=== PATIENT | female | born 1935 | race African-American/Black ===

== ENCOUNTER 2018-10-26 14:30 | Inpatient (IN) | payer MEDICARE ==
[~2018-10-26] VITALS: Ht 149.9 cm; Wt 54.9 kg
[2018-10-26 16:56] LABS: BASOPHILS % 1.1 % (0.0-2.0); HEMATOCRIT. 25.4 % (36.0-48.0); HEMOGLOBIN. 8.1 g/dL (12.0-16.0); LYMPHOCYTES % 30.1 % (20.0-50.0); MEAN CORPUSCULAR HEMOGLOBIN 20.9 pg (28.0-32.0); MEAN CORPUSCULAR VOLUME 65.8 fL (81.0-99.0); MEAN PLATELET VOLUME 6.5 fl (7.4-10.4); MONOCYTES % 6.9 % (2.0-8.0); NEUTROPHILS % 57.9 % (40.0-76.0); PLATELET 471 x1000/uL (130-400); RED BLOOD CELL COUNT 3.87 mill/uL (4.2-5.4)
[2018-10-26 16:59] LABS: CHLORIDE 104 mEq/L (98-107)
[2018-10-26] MEDS ORDERED: ACETAMINOPHEN 325MG TABLET PO ONE (17:00)
[2018-10-26 17:04] LABS: INR 1.2; PARTIAL THROMBOPLASTIN TIME 32.4 sec (23.4-31.0); PROTHROMBIN TIME 11.9 sec (9.1-11.1)
[2018-10-26] MEDS ORDERED: FUROSEMIDE 20MG/2ML VIAL IVP ONE (17:15)
[2018-10-26 17:19] LABS: PLATELET ESTIMATE SLIGHTLY INCREASED
[2018-10-26] MEDS ORDERED: SODIUM CHLORIDE 0.9% 500 ML IV ONE (17:58)
[2018-10-26] MEDS ORDERED: POTASSIUM CHLORIDE 20MEQ TABLET SR PO ONE (18:00)
[2018-10-26] MEDS ORDERED: TRAMADOL 50MG TABLET PO ONE (18:30)
[2018-10-26] MEDS ORDERED: IPRATROPIUM/ALBUTEROL 0.5-3(2.5)MG/3ML NEB INH PRN (19:30)
[2018-10-26] MEDS ORDERED: MAGNESIUM/ALUMINUM HYDROXIDE/SIMETHICONE 30ML UDC PO PRN (19:30)
[2018-10-26] MEDS ORDERED: NA PHOS,M-B/NA PHOS,DI-BA ENEMA 118ML PR PRN (19:30)
[2018-10-26] MEDS ORDERED: DIPHENHYDRAMINE 50MG/ML VIAL IV PRN (19:30)
[2018-10-26] MEDS ORDERED: GUAIFENESIN 200MG/10ML SUGAR FREE UDC PO PRN (19:30)
[2018-10-26] MEDS ORDERED: ONDANSETRON HCL 4MG/2ML INJ IV PRN (19:30)
[2018-10-26] MEDS ORDERED: LORAZEPAM 2MG/ML CPJ IV PRN (19:30)
[2018-10-26] MEDS ORDERED: HYDRALAZINE 20MG/ML VIAL IV PRN (19:30)
[2018-10-26] MEDS ORDERED: DOCUSATE SODIUM 100MG CAPSULE PO PRN (19:30)
[2018-10-26 21:25] VITALS: BP 129/59
[2018-10-26 22:04] VITALS: BP 129/59
[2018-10-27] VITALS: BP_SYST 135; BP_SYST 165; BP_DIAS 58; BP_DIAS 74
[2018-10-27 00:16] LABS: CREATINE KINASE 255 IU/L (26-192)
[2018-10-27 00:17] LABS: CREATINE KINASE MB FRACTION 3.8 ng/mL (0.5-3.6)
[2018-10-27] MEDS: SODIUM CHLORIDE 0.9% INJ 3ML FLUSH IVF SCH ×2 (00:25→21:01)
[2018-10-27] MEDS: TRAMADOL 50MG TABLET PO PRN ×3 (00:25→18:33)
[2018-10-27 04:00] VITALS: BP 127/66
[2018-10-27 08:00] VITALS: BP 154/51
[2018-10-27] MEDS: ENOXAPARIN 40MG/0.4ML SYR SUBCUT SCH (08:07)
[2018-10-27 08:20] LABS: BASOPHILS % 1.2 % (0.0-2.0); EOSINOPHILS % 3.7 % (0.0-5.0); HEMATOCRIT. 24.6 % (36.0-48.0); HEMOGLOBIN. 7.8 g/dL (12.0-16.0); LYMPHOCYTES % 29.2 % (20.0-50.0); MEAN CORPUSCULAR HEMOGLOBIN 20.9 pg (28.0-32.0); MEAN CORPUSCULAR VOLUME 65.9 fL (81.0-99.0); MEAN PLATELET VOLUME 6.8 fl (7.4-10.4); MONOCYTES % 7.1 % (2.0-8.0); NEUTROPHILS % 58.8 % (40.0-76.0); PLATELET 419 x1000/uL (130-400); RED BLOOD CELL COUNT 3.74 mill/uL (4.2-5.4); RED CELL DISTRIBUTION WIDTH 19.4 % (11.6-14.6)
[2018-10-27 08:31] LABS: CHLORIDE 103 mEq/L (98-107)
[2018-10-27 08:44] LABS: CREATINE KINASE MB FRACTION 2.6 ng/mL (0.5-3.6); LDL CHOLESTEROL 112 mg/dL (5-100); T4 FREE 1.54 ng/dL (0.76-1.46)
[2018-10-27 08:46] LABS: CREATINE KINASE 184 IU/L (26-192); HDL CHOLESTEROL 75 mg/dL (40-59)
[2018-10-27] MEDS ORDERED: FUROSEMIDE 40MG/4ML VIAL IV SCH (09:00)
[2018-10-27] MEDS: ACETAMINOPHEN 325MG TABLET PO PRN ×2 (10:29→16:35)
[2018-10-27 12:00] VITALS: BP 143/63
[2018-10-27] MEDS ORDERED: POTASSIUM CHLORIDE 10MEQ TABLET SR PO SCH (12:15)
[2018-10-27] MEDS: FUROSEMIDE 20MG/2ML VIAL IVP SCH (13:46)
[2018-10-27 15:38] LABS: CREATINE KINASE 153 IU/L (26-192)
[2018-10-27 15:39] LABS: CREATINE KINASE MB FRACTION 2.1 ng/mL (0.5-3.6)
[2018-10-27 15:42] LABS: T4 FREE 1.53 ng/dL (0.76-1.46)
[2018-10-27 16:26] VITALS: BP 151/72
[2018-10-27 20:00] VITALS: BP 122/64
[2018-10-27] MEDS: CLONIDINE 0.1MG TABLET PO PRN (21:01)
[2018-10-28] VITALS: BP 143/63
[2018-10-28 00:48] LABS: CREATINE KINASE 127 IU/L (26-192)
[2018-10-28 00:49] LABS: CREATINE KINASE MB FRACTION 1.7 ng/mL (0.5-3.6)
[2018-10-28] MEDS: TRAMADOL 50MG TABLET PO PRN ×2 (03:54→12:17)
[2018-10-28 04:00] VITALS: BP 176/72
[2018-10-28] MEDS: CLONIDINE 0.1MG TABLET PO PRN (05:22)
[2018-10-28] MEDS: SODIUM CHLORIDE 0.9% INJ 3ML FLUSH IVF SCH ×3 (05:23→22:00)
[2018-10-28 07:41] LABS: CREATINE KINASE 121 IU/L (26-192)
[2018-10-28 07:42] LABS: CREATINE KINASE MB FRACTION 2.1 ng/mL (0.5-3.6)
[2018-10-28 08:00] VITALS: BP 186/82
[2018-10-28] MEDS: ACETAMINOPHEN 325MG TABLET PO PRN ×2 (08:12→17:01)
[2018-10-28] MEDS: FUROSEMIDE 20MG/2ML VIAL IVP SCH (08:12)
[2018-10-28] MEDS: ENOXAPARIN 40MG/0.4ML SYR SUBCUT SCH (08:13)
[2018-10-28 12:24] VITALS: BP 146/60
[2018-10-28 16:19] VITALS: BP 172/70
[2018-10-28] MEDS ORDERED: KETOROLAC 30MG/ML VIAL IV PRN (18:00)
[2018-10-28 20:00] VITALS: BP 160/67
[2018-10-28] MEDS: AMLODIPINE 5MG TABLET PO SCH (22:00)
[2018-10-29] VITALS: BP 144/78
[2018-10-29 04:00] VITALS: BP 148/72
[2018-10-29] MEDS: SODIUM CHLORIDE 0.9% INJ 3ML FLUSH IVF SCH (06:25)
[2018-10-29 08:00] VITALS: BP 195/84
[2018-10-29] MEDS: ENOXAPARIN 40MG/0.4ML SYR SUBCUT SCH (09:10)
[2018-10-29] MEDS: AMLODIPINE 5MG TABLET PO SCH (09:10)
[2018-10-29] MEDS: CLONIDINE 0.1MG TABLET PO PRN (09:10)
[2018-10-29] MEDS: FUROSEMIDE 20MG/2ML VIAL IVP SCH (09:11)
[2018-10-29 12:00] VITALS: BP 169/59
[2018-10-29 16:34] LABS: CHLORIDE 99 mEq/L (98-107)
[2018-10-29 20:00] VITALS: BP 163/79
[2018-10-29] MEDS: TRAMADOL 50MG TABLET PO PRN (21:48)
[2018-10-30] VITALS: BP 176/68
[2018-10-30 04:00] VITALS: BP 158/56
[2018-10-30] MEDS: TRAMADOL 50MG TABLET PO PRN (04:54)
[2018-10-30] MEDS: SODIUM CHLORIDE 0.9% INJ 3ML FLUSH IVF SCH (06:43)
[2018-10-30 08:00] VITALS: BP 153/80
[2018-10-30] MEDS: ENOXAPARIN 40MG/0.4ML SYR SUBCUT SCH (09:31)
[2018-10-30] MEDS: AMLODIPINE 5MG TABLET PO SCH (09:31)
[2018-10-30] MEDS: FUROSEMIDE 20MG/2ML VIAL IVP SCH (09:32)
[2018-10-30] MEDS: CLONIDINE 0.1MG TABLET PO PRN (11:15)
[2018-10-30 11:17] VITALS: BP 153/80
[2018-10-30 12:00] VITALS: BP 136/67
== END 2018-10-30 14:00 | disposition home or self-care (01) | DRG 557 ==
LOC: ER 16:35 → 5WST 17:58 → EDBEDREQTM 18:16 → EDBEDREQ 18:16 → ENRESERV 20:36
PROVIDERS: ADMIT Internal Medicine; ATTEND Internal Medicine
DX: M71.22 Synovial cyst of popliteal space [Baker], left knee (principal); I50.33 Acute on chronic diastolic (congestive) heart failure; E43 Unspecified severe protein-calorie malnutrition; M71.21 Synovial cyst of popliteal space [Baker], right knee; D64.9 Anemia, unspecified; E87.6 Hypokalemia; M16.0 Bilateral primary osteoarthritis of hip; I10 Essential (primary) hypertension; I25.10 Atherosclerotic heart disease of native coronary artery without angina pectoris; M19.90 Unspecified osteoarthritis, unspecified site; Z88.5 Allergy status to narcotic agent; Z68.24 Body mass index [BMI] 24.0-24.9, adult
CPT/HCPCS: 36415; 71045; 73522; 80048; 80061; 82550; 82553; 83036; 83880; 84439; 84443; 84484; 85379; 86850; 86900; 93005; 93306; 93970; 96361; 96374; 96375; 97162; 97166; 97530; 99285; C1893; J1650; J1885; J1940; J2060; J7040